=== PATIENT | female | born 1955 | race Caucasian/White ===

== ENCOUNTER 2022-01-21 10:16 | Outpatient (CLI) | payer BC, SELFPAY ==
--- NOTE | ~2022-01-21 | MM_ITS ---
EXAMINATION: MM screening sherice BI w emi HISTORY: Screening mammogram TECHNIQUE: Craniocaudal and mediolateral oblique 3-D tomosynthesis images were obtained and synthetic 2-D images were generated. CAD analysis was submitted and interpreted. COMPARISON: January 17, 2017, December 22, 2014 bilateral screening mammogram examinations BREAST PARENCHYMAL COMPOSITION: The breasts are almost entirely fatty. FINDINGS: There is no evidence of suspicious mass, calcification, or architectural distortion to sugg est malignancy in either breast. There has been no suspicious interval change. IMPRESSION: 1. No mammographic evidence of malignancy. 2. Recommend routine screening mammography in one year. BI-RADS Category 1: Negative Reviewed, dictated and finalized at location A. MINER
== END 2022-01-21 10:17 | disposition home or self-care (01) ==
LOC: ANHIMG 10:18
PROVIDERS: PCP Family Medicine; Visit Provider Family Medicine
DX: Z12.31 Encounter for screening mammogram for malignant neoplasm of breast (principal)
CPT/HCPCS: 77063; 77067

== ENCOUNTER 2023-03-03 08:18 | Outpatient (CLI) | payer BC, SELFPAY ==
--- NOTE | ~2023-03-03 | NM_ITS ---
EXAMINATION: NM zana stress w perfusion DATE: 03/03/2023 11:34 INDICATION: Other forms of dyspnea TECHNIQUE: Rest images were obtained following intravenous administration of 10.5 mCi Tc99m tetrofosm in (Myoview). The patient was infused intravenously with Lexiscan (Regadenoson). Then, 33.7 mCi Tc99m tetrofosmin (Myoview) was administered intravenously, and stress images were obtained in supine and subsequently in prone position. Data was reconstructed into short axis and horizontal and vertical lo ng axis SPECT images. Gated SPECT images were also obtained. COMPARISON: None. FINDINGS: There is likely diaphragmatic attenuation artifact along the inferior/inferoseptal segments on the rest and stress images obtained in supine position which normalizes on the prone post stress imaging. There is no definite reversible or fixed perfusion abnormality to suggest ischemia or infarc tion. There is normal left ventricular chamber size, wall motion and ejection fraction. Left ventri cular ejection fraction measures 64%. IMPRESSION: 1. Normal myocardial perfusion at rest and during stress. 2. Left ventricular ejection fraction measuring 64%. Reviewed, dictated and finalized at location A.
--- NOTE | 2023-03-03 08:32 | EST_ITS ---
Patient Info Name: Mitzy Milian Age: 67 years : 1955 Gender: Female Ht: 64 in Wt: 197 lbs BSA: 2.05 m2 HR: 67 bpm BP: 100 / 66 mmHg Heart Rhythm: Sinus Rhythm Exam Date: 03/03/2023 9:17 AM Exam Location: [facility] Stress Patient Status: Outpatient Admit Date: 03/03/2023 Staff Ordering Physician: Kemar Gerardo DO Attending Provider: Kemar Gerardo DO Exercise Technologist: Marta Miranda CT Exercise Physician: Kemar Gerardo DO Exam Type: CA stress zana w NM Study Info Indications R06.09 - Other forms of dyspnea A regadenoson stress test was performed. Summary 1. 1. Inconclusive lexiscan stress test for ischemic ST changes by ECG criteria due to baseline LBBB. 2. 2. Stable hemodynamics throughout the test. 3. 3. Nuclear scan to follow and will be reported separately. Please correlate with it. 4. 4. Patient informed of the above results. Protocol: Lexiscan Stress ECG Details Stage: REST Duration (min): 5 min : 25 sec HR (bpm): 74 SBP (mmHg): 100 DBP (mmHg): 66 Stage: STAGE 1 Duration (min): 0 min : 59 sec HR (bpm): 72 SBP (mmHg): 125 DBP (mmHg): 64 Stage: RECOVERY Duration (min): 1 min : 0 sec HR (bpm): 90 SBP (mmHg): 125 DBP (mmHg): 64 Stage: RECOVERY Duration (min): 2 min : 0 sec HR (bpm): 87 SBP (mmHg): 125 DBP (mmHg): 64 Stage: RECOVERY Duration (min): 3 min : 0 sec HR (bpm): 77 SBP (mmHg): 125 DBP (mmHg): 64 Stage: RECOVERY Duration (min): 4 min : 0 sec HR (bpm): 78 SBP (mmHg): 125 DBP (mmHg): 64 Stage: RECOVERY Duration (min): 5 min : 0 sec HR (bpm): 78 SBP (mmHg): 125 DBP (mmHg): 64 Stage: RECOVERY Duration (min): 6 min : 0 sec HR (bpm): 81 SBP (mmHg): 125 DBP (mmHg): 64 Stage: RECOVERY Duration (min): 6 min : 59 sec HR (bpm): 77 SBP (mmHg): 119 DBP (mmHg): 68 Rest HR: 74 bpm Peak HR: 93 bpm Rest Sys BP: 100 mmHg Peak Sys BP: 125 mmHg Max Pred HR: 154 bpm % Max Pred HR: 60 % Target HR: 131 bpm Max RPP: 11,625 bpm*mmHg Termination Reason: Completed protocol Cardiac Symptoms: Shortness of breath Total Time: 1 min : 0 sec Rest Devine BP: 66 mmHg Peak Devine BP: 64 mmHg Total Dose: 0.4 mg Resting ECG Sinus rhythm, LBBB. Stress ECG No ST changes. Arrhythmias None. Report Signatures
== END 2023-03-03 08:19 | disposition home or self-care (01) ==
LOC: ANHCARD 08:19
PROVIDERS: PCP Family Medicine; Visit Provider Internal Medicine Cardiovascular Disease
DX: R06.09 Other forms of dyspnea (principal)
CPT/HCPCS: 78452; 93017; A9502; J2785

== ENCOUNTER 2023-03-17 09:27 | Outpatient (CLI) | payer BC, SELFPAY ==
[2023-03-17 10:50] LABS: Alanine Aminotransferase 114 U/L (6-35); Albumin Level 4.3 g/dL (3.5-5.1); Alkaline Phosphatase 188 U/L (38-126); Anion Gap 5 mmol/L (8-16); Aspartate Amino Transferase 49 U/L (14-36); Bilirubin,Total 0.9 mg/dL (0.2-1.3); Blood Urea Nitrogen 15 mg/dL (7-17); Calcium 9.2 mg/dL (8.4-10.2); Carbon Dioxide 32 mmol/L (22-30); Chloride 103 mmol/L (98-107); Cholesterol 154 mg/dL (0-200); Estimated Glomerular Filt Rate > 60; Glucose 91 mg/dL (65-110); HDL Direct 35 mg/dL; Potassium 4.1 mmol/L (3.4-5.0); Sodium 140 mmol/L (137-145); Triglycerides 115 mg/dL (<150)
[2023-03-17 11:01] LABS: LDL Cholesterol Direct 89 mg/dL
== END 2023-03-17 09:28 | disposition home or self-care (01) ==
PROVIDERS: PCP Family Medicine; Visit Provider Internal Medicine Cardiovascular Disease
DX: E78.00 Pure hypercholesterolemia, unspecified (principal)
CPT/HCPCS: 36415; 80053; 80061